=== PATIENT | female | born 1960 | race Caucasian/White ===

== ENCOUNTER 2016-10-31 18:48 | Emergency (ER) | payer OTHER ==
[~2016-10-31] VITALS: Ht 157.5 cm; Wt 41.0 kg
[~2016-10-31 18:48] MED LIST: BUPR300T PO; CELE40TA PO; CYCL1PAK PO; IMIT100T PO; LEVE500 PO; MELA5TAB8 PO; MORP100T40 PO; MORP30SU PO; NORC10TA2 PO
[2016-10-31 18:49] VITALS: BP 120/63; PULSE 81; RESP 18; TEMP 98.7; O2SAT 97
== END 2016-10-31 22:12 | disposition left against medical advice (07) ==
LOC: NED 18:48
DX: R68.89 Other general symptoms and signs (principal)
CPT/HCPCS: 99281